=== PATIENT | male | born 1940 | race Caucasian/White ===

== ENCOUNTER 2016-10-03 10:59 | Day surgery (SDC) | payer OTHER ==
[~2016-10-03] VITALS: Ht 167.6 cm; Wt 84.4 kg
[~2016-10-03 10:59] MED LIST: ASPI325T PO; GLAUCOMA GTTS; LIPI20TA PO; METO50 PO; NITR.4 SL
[2016-10-03] MEDS ORDERED: AMLO5TAB2 PO (11:22)
[2016-10-03] MEDS ORDERED: BRIM0.155 EACH EYE (11:22)
[2016-10-03] MEDS ORDERED: METO50TA PO (11:22)
[2016-10-03] MEDS ORDERED: METH750T PO (11:22)
[2016-10-03] MEDS ORDERED: ASPI81CH CHEW (11:22)
[2016-10-03] MEDS ORDERED: ISOS30TA15 (11:22)
[2016-10-03 11:26] VITALS: BP 171/79; PULSE 67; RESP 16; TEMP 98.3; O2SAT 96
[2016-10-03] MEDS ORDERED: MUPIROCIN 2% OINT 1 APPLIC/GM SYR NASAL SCH (11:30)
[2016-10-03] MEDS ORDERED: CHLORHEXIDINE GLUCONATE 2 % 1 PACK (2 CLOTHS) TOPICAL SCH (11:30)
[2016-10-03] MEDS ORDERED: LACTATED RINGER'S 1000 ML IV PRN (11:30)
[2016-10-03] MEDS ORDERED: VANCOMYCIN 1000 MG/NS 250 ML IV SCH ×2 (11:30)
[2016-10-03] MEDS ORDERED: LORazepam 1 MG TAB SL SCH (11:30)
[2016-10-03] MEDS ORDERED: ceFAZolin 2 GM PREMIX 50 ML IV SCH (11:30)
[2016-10-03] MEDS ORDERED: INSULIN HUMAN REGULAR 1,000 UNITS/10 ML VIAL SQ PRN (11:30)
[2016-10-03] MEDS ORDERED: NS 1000 ML IV SCH (11:30)
[2016-10-03] MEDS ORDERED: METOPROLOL TARTRATE 25 MG TAB PO PRN (11:30)
[2016-10-03] MEDS ORDERED: SODIUM CHLORID 0.9% 500 ML IV PRN (11:30)
[2016-10-03] MEDS ORDERED: CHLORHEXIDINE GLUCONATE 2 % 1 PACK (2 CLOTHS) TOPICAL PRN (11:30)
[2016-10-03 11:37] LABS: AUTOMATED NEUTROPHIL # 6.2 TH/MM3 (1.8-7.7); BASOPHIL # 0.1 TH/MM3 (0-0.2); BASOPHIL % 1.5 % (0.0-2.0); EOSINOPHIL # 0.6 TH/MM3 (0-0.4); EOSINOPHIL % 6.3 % (0.0-4.0); HEMATOCRIT 36.2 % (39.0-51.0); HEMO FLAGS DIFF FINAL; LYMPH % 23.8 % (9.0-44.0); LYMPHOCYTE # 2.4 TH/MM3 (1.0-4.8); MEAN CELL VOLUME 81.1 FL (80.0-100.0); MEAN CORPUSCULAR HGB CONC 34.5 % (32.0-36.0); MONO % 6.5 % (0.0-8.0); NEUT % 61.9 % (16.0-70.0); PLATELET COUNT 359 TH/MM3 (150-450); RED BLOOD COUNT 4.47 MIL/MM3 (4.50-5.90); RED CELL DISTRIBUTION WIDTH 14.4 % (11.6-17.2)
[2016-10-03 11:46] LABS: APTT (PATIENT) 30.3 SEC (24.3-30.1); PROTHROMBIN TIME - PATIENT 10.9 SEC (9.8-11.6)
[2016-10-03 11:49] LABS: BICARBONATE 28.1 MEQ/L (21.0-32.0); POTASSIUM 4.2 MEQ/L (3.5-5.1)
[2016-10-03] MEDS ORDERED: PROPOFOL 200 MG/20 ML AMP IV ONE (14:08)
[2016-10-03] MEDS ORDERED: VANCOMYCIN 500 MG VIAL ONE (14:21)
[2016-10-03] MEDS ORDERED: VANCOMYCIN HCL 1000 MG VIAL ONE (14:21)
[2016-10-03] MEDS ORDERED: ceFAZolin INJ 1,000 MG VIAL ONE (14:22)
[2016-10-03] MEDS ORDERED: LIDOCAINE HCL 2% 50 ML VIAL ONE (14:22)
[2016-10-03] MEDS ORDERED: ISOPROTERENOL HCL 1 MG/5 ML AMP ONE (15:28)
[2016-10-03] MEDS ORDERED: SODIUM CHLOR 0.9% 250 ML INJ 250 ML ONE (15:28)
--- NOTE | 2016-10-03 15:43 | CATHPROC ---
[employer] HIS Report Study Information Study Number Admission Scheduled Start Study Start [id number] Oct 03 2016 10:59AM 10/03/2016 Oct 03 2016 1:49PM [place] Service Cardiac Pacer/ICD Admit Source Facility Department Other [facility] - Assistant Sales Director Physician and Clinical Staff Initial Quincy Rodriguez Clay Temperer Manju Hendricks,MANAGER UNIX TECH2 Other Anesthesia, FIRE LIEUTENANT Recorder Katelynn Wilkinson,RN Recorder Tere Warner RN Scrub Chelo Hernandez,RT(R) TECH2 Equipment Time Modern And Contemporary Art Curator Description Size Mfg Part Number Used/Scraped [id number] 13:51 [employer] IND[employer]RIES PACK, CCL CUSTOM * Used *[id number] 13:51 [employer] PACER MCCRACKEN, LIMB * 2530 *[id number] Used [id number] 13:51 [employer] BLANKET,WARM AIR CCL * Used *[id number] 14:13 [employer] MEDICAL CATHETER, JSN, QUAD FR 5 Used *[id number] 14:13 [employer] MEDICAL CATHETER, JSN, QUAD FR 5 Used *[id number] 14:13 [employer] MEDICAL CATHETER, JSN, QUAD FR 5 Used *[id number] 14:13 [employer] MEDICAL CATHETER, JSN, QUAD FR 5 Used *[id number] [id number] 14:13 [employer]AN[employer] MEDICAL SHEATH, EPS, FR5 FAST CATH FR 5 Used *[id number] 14:13 [employer] MEDICAL SHEATH, EPS, FR5 FAST CATH FR 5 Used *[id number] 14:13 [employer]AN[employer] MEDICAL SHEATH, EPS, FR5 FAST CATH FR 5 Used *[id number] 14:13 [employer] DANIAL MEDICAL SHEATH, EPS, FR6 FAST CATH FR 6 [id number] Used History: Allergies Allergy Reaction Contrast Media Itching Simvastatin History: Risk Factors Hypertension Dyslipidemia Yes Yes Labs Hgb (g/dl) Hct (%) RBC (MIL/MM3) WBC (l/cumm) Platelets (thousands) 12.00-18.00 37.00-55.00 4.80-6.20 4.80-10.80 140.00-450.00 12.0 36 4.4 10 359 Glucose (mg/dl) BUN (mg/dl) Creatinine (mg/dl) BUN:Creatinine (1:x) 60.00-110.00 8.00-20.00 0.10-9.00 10.00-20.00 91 23 1.9 12.1 Na (meq/l) K (meq/l) 138.00-146.00 3.80-5.10 141 4.2 INR (PTT:PT) 0.50-2.00 1 Medication Medication Total Dose (Bolus/Oral) Medication Total Dosage/Unit 1% XYLOCAINE 40 mL Medications (Bolus/Oral) Medication Time Given Dosage/Unit Administered By Reason 1% XYLOCAINE 10/03/2016 2:57:28 PM 20 mL Quincy Du 20 mL 1% XYLOCAINE given in lab by Quincy Du in Right Groin via Subcutaneous. Ordered by Julee Du. 1% XYLOCAINE 10/03/2016 2:59:17 PM 20 mL Quincy Du 20 mL 1% XYLOCAINE given in lab by Quincy Du in Left Groin via Subcutaneous. Ordered by Stuart Du. Medication (Drip) Medication Time Given Dosage/Unit Concentration/Unit Diluent (ml) Solution ISUPREL 10/03/2016 3:33:47 PM 4 mcg/min 1 mg 250 NaCl .9 4 mcg/min ISUPREL given in lab by Anesthesia, FIRE LIEUTENANT via Peripheral IV. Pump/Drip Flow = 60 ml/hr using NaCl .9 with a concentration of 1 mg in 250 ml. Ordered by Quincy Du. Reason: As per physicians verbal order. Initial Case Assessment Cardiovascular HR Rhythm NIBP Chest Pain 70 sr 191/81 0 Edema Present Skin color Skin None Normal Warm Dry Circulatory - Right Pulses Dorsalis Pedis Radial 1 1 Scale (0,1,2,3,4,d) Circulatory - Left Pulses Dorsalis Pedis Radial 1 1 Scale (0,1,2,3,4,d) Circulatory - Lower Extremities Color Lower Right Normal Neurological State Oriented to time-place- Alert Moves all extremities person Respiration - General Respiration Rate SpO2 (%) (B/min) 21 98 Chronological Log Time Study Chronological Log 14:08:59 Patient arrived via Bed. 14:09:00 Patient Name, D.O.B, / Armband Verified By R.N. 14:09:06 Consent signed by the physician and the patient and verified by the Assistant Sales Director staff. 14:09:07 Pre-op and post- op instructions given; patient acknowledges understanding of instructions. 14:09:07 Verbal Stimulation=2 Physical Stimulation=2 Airway=2 Respiration=2 TOTAL=8. (0=absent, 1=li mited, 2=present) 14:09:21 Patient has been NPO for More than 6Hrs. 14:09:23 Skin Breakdown-generalized scabs 14:09:47 Patient Warmer Placed on the Table. 14:09:50 Disposable Defibrillator Pads Placed On Patient. 14:09:51 Todd Prominences Protected 14::52 A # 20 IV was noted in the Hand (right). Grade = 0 0.9ns kvo 14:09:53 A # 20 IV was noted in the Antecubital (left). Grade = 0 0.9ns kvo Assessment: Initial Case, HR=70 BPM, Rhythm=sr, YZBO=631/81 mmhg, Chest Pain=0, Edema=None, Col or=Normal, Skin = Warm, Dry Right Pulses: Javier Ped=1, Radial=1 14:18:00 Left Pulses: Javier Ped=1, Radial=1 Lower Right Extremities: Color=Normal Neurological: State=Alert, Ox3, LUNA Respiration: Resp=21 B/min, SpO2=98 % 14:21:59 Table restraints applied according to hospital policy 14:22:03 Bilateral groins prepped with 2% chlorhexidine, and with a 3 min. waiting time. 14:23:11 2% CHLORHEXIDINE GLUCONATE WASH AND NASAL SWIPE DONE PRIOR TO PROCEDURE. 14:23:21 Bovie ground pad applied to: right thigh 14:39:25 Anesthesia at bedside. Assumes care of patient. Will 14:43:52 MD paged 14:53:00 MD arrived. 14:54:56 Reference ECG taken Time Out. Correct patient, procedure, procedure equipment, site and side verified with physicia n present. Time 14:56:00 concurred by MD, individual staff and FIRE LIEUTENANT. Time Out #2 - Consents verified, patient in correct position, all results are labled and displa yed, safety precautions 14:56:31 taken, antibiotics administered. Time out concurred by MD, individual staff and FIRE LIEUTENANT in procedu re 14:56:55 Case Start 14:57:28 20 mL 1% XYLOCAINE given in lab by Quincy Du in Right Groin via Subcutaneous. Ordered b y Quincy Du. 14:59:17 20 mL 1% XYLOCAINE given in lab by Quincy Du in Left Groin via Subcutaneous. Ordered by Quincy Du. 15:01:00 Vascular access was obtained in the Fem Vein (left). 15:01:02 Vascular access was obtained in the Fem Vein (left). 15:01:05 Vascular access was obtained in the Fem Vein (left). 15:01:10 Vascular access was obtained in the Fem Vein (left). 15:01:37 A SHEATH, EPS, FR5 FAST CATH FR 5 was advanced into the Fem Vein (left) using the Modified Seldinger technique. 15:03:44 A SHEATH, EPS, FR5 FAST CATH FR 5 was advanced into the Fem Vein (left) using the Modified Seldinger technique. 15:04:17 A SHEATH, EPS, FR5 FAST CATH FR 5 was advanced into the Fem Vein (left) using the Modified Seldinger technique. 15:04:41 A SHEATH, EPS, FR6 FAST CATH FR 6 was advanced into the Fem Vein (left) using the Modified Seldinger technique. 15:04:46 POWER OUTAGE awaiting on XRAY TO LOAD A CATHETER, JSN, QUAD FR 5 was advanced vis Fem Vein (left) and placed in the CS. Placement was visually 15:11:40 confirmed under fluoroscopy. A CATHETER, JSN, QUAD FR 5 was advanced vis Fem Vein (left) and placed in the HIS. Placement wa s visually 15:11:51 confirmed under fluoroscopy. A CATHETER, JSN, QUAD FR 5 was advanced vis Fem Vein (left) and placed in the HRA. Placement wa s visually 15:11:55 confirmed under fluoroscopy. A CATHETER, JSN, QUAD FR 5 was advanced vis Fem Vein (left) and placed in the RVA. Placement wa s visually 15:12:01 confirmed under fluoroscopy. 15:13:58 EP STUDY IN PROGRESS 4 mcg/min ISUPREL given in lab by Anesthesia, FIRE LIEUTENANT via Peripheral IV. Pump/Drip Flow = 60 ml/hr using NaCl .9 with 15:33:47 a concentration of 1 mg in 250 ml. Ordered by Quincy Du. Reason: As per physicians verbal o rder. 15:37:50 ISUPREL OFF. 15:40:48 Catheter(s) removed without difficulty 15:42:04 Case End 15:42:05 No case complications noted. 15:42:06 Cine recording checked. 15:42:17 NOTE: This patient is undergoing an additional procedure while still in the Cardiac Cath L ab. 15:42:26 Sheath(s) left in place, will be removed later End Study - Contrast Media Used In Study Contrast Total Opened (mL) Total Used (mL) Total Wasted (mL) Unspecified 0 0 0 End Study - Maximum Contrast Load Max Contrast Load (mL) 222.1 End Study - Radiation Exposure Fluoro Time (minutes) 2.2 End Study - Patient Disposition Complications Transferred To Interventional Outcome No Assistant Sales Director Holding successful
--- NOTE | 2016-10-03 16:04 | CATHPROC ---
[employer] HIS Report Study Information Study Number Admission Scheduled Start Study Start [id number] Oct 03 2016 10:59AM 10/03/2016 Oct 03 2016 3:43PM [place] Service Electrophysiology Study Admit Source Facility Department Other [facility] Physician and Clinical Staff Initial Quincy Rodriguez Retail Branch Manager Manju Hendricks,ASSEMBLER MUSICAL EQUIPMENT TECH2 Other Anesthesia, SHARK BIOLOGIST Recorder Katelynn Wilkinson,RN Recorder Tere Warner,JANAK Scrub Chelo Hernandez,RT(R) TECH2 Equipment Time Finishing Frame Runner Description Size Mfg Part Number Used/Scraped 15:46 [employer] PACER MCCRACKEN, LIMB * 2530 *[id number] Used [id number] 15:46 [employer] BLANKET,WARM AIR CCL * Used *[id number] [facility] PAD, ELECTROSURGICAL 15:46 * [id number] *[id number] Used SURGICAL GROUNDING ORANGE [id number] 15:46 [employer] KRANTHI. ELECTRODE, PRO-PADZ BIPHASIC * Used *[id number] Medication Medication Total Dose (Bolus/Oral) Medication Total Dosage/Unit 2% XYLOCAINE 50 mL Medications (Bolus/Oral) Medication Time Given Dosage/Unit Administered By Reason 2% XYLOCAINE 10/03/2016 3:50:20 PM 50 mL Quincy Du 50 mL 2% XYLOCAINE given in lab by Quincy Du in Left upper chest via Subcutaneous. Ordered by Quincy Bush. Medication (Drip) Medication Time Given Dosage/Unit Concentration/Unit Diluent (ml) Solution VANCOMYCIN DRIP 10/03/2016 2:49:00 PM 1 g 1 g VANCOMYCIN DRIP given in lab by Anesthesia, SHARK BIOLOGIST in Left Antecubital via Peripheral IV. Ordered b Quincy Malcolm. Reason: As per physicians verbal order. Final Case Assessment Cardiovascular HR Rhythm NIBP Chest Pain 82 sr 135/69 0 Edema Present Skin color Skin None Normal Warm Dry Circulatory - Right Pulses Dorsalis Pedis Radial 1 1 Scale (0,1,2,3,4,d) Circulatory - Left Pulses Dorsalis Pedis Radial 1 1 Scale (0,1,2,3,4,d) Circulatory - Lower Extremities Color Lower Right Color Lower Left Normal Normal Neurological State Oriented to time-place- Alert Moves all extremities person Respiration - General Respiration Rate SpO2 (%) O2 (lpm) (B/min) 18 100 6 Chronological Log Time Study Chronological Log 1 g VANCOMYCIN DRIP given in lab by Anesthesia, SHARK BIOLOGIST in Left Antecubital via Peripheral IV. Or dered by Ana Laura, 14:49:00 Quincy. Reason: As per physicians verbal order. 15:43:00 NOTE: This patient is undergoing an additional procedure while still in the Cardiac Cath L ab. 15:43:23 Anesthesia remains at bedside. Assuming care of patient. Ashly 15:43:40 Left Upper Chest Prepped Times Two. Time Out. Correct patient, procedure, procedure equipment, site and side verified with physici an present. Time 15:50:14 concurred by MD, individual staff and SHARK BIOLOGIST. 15:50:19 Case Start 15:50:20 50 mL 2% XYLOCAINE given in lab by Quincy Du in Left upper chest via Subcutaneous. Ord ered by Quincy Du. 15:51:03 A implantable was connected and placed in the pocket. loop recorder 15:55:29 Sheaths removed; pressure applied to access sites by TF Assessment: Final Case, HR=82 BPM, Rhythm=sr, SCHC=936/69 mmhg, Chest Pain=0, Edema=None, Jackson r=Normal, Skin = Warm, Dry Right Pulses: Javier Ped=1, Radial=1 Left Pulses: Javier Ped=1, Radial=1 16:00:52 Lower Right Extremities: Color=Normal Lower Left Extremities: Color=Normal Neurological: State=Alert, Ox3, LUNA Respiration: Resp=18 B/min, ZcF4=075 %, O2=6 lpm 16:01:32 Case End 16:02:10 Sterile dressing applied to sites 16:02:12 No case complications noted. 16:02:16 Cine recording checked. 16:03:01 DOCU called. Spoke to Eh 16:03:32 Bedside Report will be given. 16:03:36 Defibrillator and ground pads removed. Skin intact. 16:09:38 Patient moved to stretcher End Study - Contrast Media Used In Study Contrast Total Opened (mL) Total Used (mL) Total Wasted (mL) Unspecified 0 0 0 End Study - Radiation Exposure Fluoro Time (minutes) 0.0 End Study - Patient Disposition Complications Transferred To Interventional Outcome No Telemetry Bed successful
[2016-10-03] MEDS ORDERED: CEPH-460 PO (16:14)
[2016-10-03] MEDS ORDERED: HYDR-3288 PO (16:14)
[2016-10-03] MEDS ORDERED: LORazepam 2 MG/ML VIAL IV PRN (16:15)
[2016-10-03] MEDS ORDERED: ATROPINE SULFATE 1 MG/ML VIAL IV PRN (16:15)
[2016-10-03] MEDS ORDERED: LIDOCAINE HCL 1% 50 ML VIAL INFIL PRN (16:15)
[2016-10-03] MEDS ORDERED: METOCLOPRAMIDE HCL 10 MG/2 ML VIAL IV PRN (16:15)
[2016-10-03] MEDS ORDERED: ONDANSETRON HCL 4 MG/2 ML VIAL IV PRN (16:15)
[2016-10-03] MEDS ORDERED: oxyCODONE/ACETAMINOPHEN 5 MG/325 MG TAB PO PRN ×2 (16:15)
[2016-10-03] MEDS ORDERED: SODIUM CHLOR 0.9% 250 ML INJ 250 ML IV PRN (16:15)
[2016-10-03] MEDS ORDERED: BACITRACIN OINT 0.9 GM PKT TOP ONE (16:30)
--- NOTE | 2016-10-03 19:49 | MA ---
cc: KATELIN QUESADA M.D. DATE: 10/03/2016 PROCEDURE PERFORMED: 1. Electrophysiology study. 2. CS cannulation. 3. Repeat electrophysiology study on Isuprel infusion. INDICATIONS FOR THE PROCEDURE: Mr. Starr is a 75-year-old gentleman with coronary artery disease, coronary bypass grafting with ejection fraction of 40% with episodes of syncope to undergo electrophysiology study. The risks, the nature and the benefits of the procedure were clearly stated to him. The risks include pneumothorax, cardiac perforation, stroke, need for open heart surgery and even . The patient understood and agreed to proceed. DESCRIPTION OF THE PROCEDURE IN DETAIL: After written informed consent was obtained, the patient was brought to the EP lab where he was prepped and draped in the usual sterile fashion. Conscious sedation was initiated and maintained throughout the procedure by the anesthesiologist. Once sedation was verified, because of a femoropopliteal bypass in the right inguinal area, I decided to anesthetize the left inguinal area using 2% lidocaine. Then using modified Seldinger technique, the left femoral vein was cannulated on four occasions and four guidewires were advanced. Over the wire, three 5- and a 6-Rwandan Hemaquet were advanced. Then under fluoroscopic guidance through the 5- and 6-[place]andan Hemaquets, a 4.5-[place]andan Tocagen curved quadripolar electrophysiology catheter was advanced and placed along the his, the upper right atrium, the coronary sinus and right ventricular apex. Basic intervals were measured and they were within normal limits. At this point, atrial pacing protocol was performed. Atrial pacing protocol consisted of incremental atrial pacing as well as program stimulation with 103 cycle length and up to one excess stimuli delivered. No tachyarrhythmia was induced. Then ventricular pacing protocol was performed. There was VA conduction. During ventricular pacing protocol, an episode of self-limited ventricular tachyarrhythmia was induced. Then Isuprel was infused. Ventricular pacing protocol was repeated again. No tachyarrhythmia was induced. At that point, the procedure was complete. All catheters were removed. The patient had five episode of syncope. The ejection fraction was 40 but no ventricular tachycardia induced. I am going to implant a loop recorder for monitoring. No incident report. The patient tolerated the procedure. The blood loss was minimal. 1. ELECTROCARDIOGRAM: At baseline, the patient was in sinus rhythm. Postprocedure electrocardiogram was unchanged. 2. BASIC INTERVAL: Base cycle length was around 690 milliseconds, AH at 100 and HV at 66 milliseconds. 3. ATRIAL PACING PROTOCOL: Wenckebach of the node was around 370 milliseconds. ERP of the node was 600 to 180 milliseconds. No tachyarrhythmia was induced. 4. LEFT VENTRICULAR PACING PROTOCOL: There was VA conduction. No tachyarrhythmia was induced. CONCLUSIONS: Negative electrophysiology study for supraventricular tachyarrhythmia, COMMENTS AND RECOMMENDATIONS: As mentioned before, the patient is going to be kept on the table. A loop recorder will be inserted for monitoring. MD LASHELL Cm/VALERIE /4:02 PM /7:42 PM
--- NOTE | 2016-10-04 13:37 | EKG ---
Date Performed: 10/03/2016 Time Performed: 11:36:18 PTAGE: 75 years EKG: Sinus rhythm with borderline 1st degree A-V block Possible inferior infarct - age undetermined Anterior T wave ch anges are nonspecific Abnormal ECG PREVIOUS TRACING : 05/13/2014 06.14 Compared to prior tracing no significant change DOCTOR: Nicho Bangura Interpretating Date/Time 10/04/2016 13:33:47
--- NOTE | 2016-10-06 06:46 | MP ---
cc: ALY MILLER MD, HANSCY M.D. DATE OF SURGERY 10/03/2016 PROCEDURE PERFORMED Loop recorder insertion. INDICATIONS FOR PROCEDURE Mr. Starr is a 75-year-old gentleman with an episode of syncope, coronary artery disease, to undergo loop recorder insertion. The risks, the nature and the benefit of the procedure are clearly stated to him. The risks include pneumothorax, cardiac perforation, infection and even . He understood and agreed to proceed. PROCEDURE As written informed consent was obtained prior to electrophysiology study, the patient was kept on the table where he was prepped and draped in the usual sterile fashion. Once sedation was verified, the left parasternal area was anesthetized with 2% Xylocaine. Using the cautery a less than 1 cm incision was made. Subsequently the loop was injected under the skin. After adequate sensing was obtained, the border was reapproximated using Dermabond and Steri-Strips. No incident reported. The patient tolerated the procedure. Blood loss minimal. 1. IMPLANTED HARDWARE: The implanted loop recorder is a [employer] Reveal, serial number [id number]. 2. SENSING: The sensitivity is around 0.25, 0.3 mV. 3. SETTINGS: Jemal less than 40, tachy over 150 beats per minute. CONCLUSION Successful loop recorder insertion, COMMENT AND RECOMMENDATIONS The patient is going to be transferred to the telemetry unit. Be will observed and when stable can be discharged home. Quincy Du MD HS/SSB /4:06 PM /6:42 AM
== END 2016-10-03 19:20 | disposition home or self-care (01) ==
LOC: HCAT 10:59 → HDIC 11:00 → HCAT 19:20
PROVIDERS: ATTEND Internal Medicine Interventional Cardiology
DX: R55 Syncope and collapse (principal); I25.10 Atherosclerotic heart disease of native coronary artery without angina pectoris; I47.2 Ventricular tachycardia
CPT/HCPCS: 80048; 85025; 85610; 85730; 86850; 86900; 86901; 93005; 93620; 93623; C1730; J0690; J3370; J7050